=== PATIENT | female | born 1980 | race African-American/Black ===

== ENCOUNTER 2017-03-24 00:31 | Emergency (ER) | payer SELFPAY ==
[~2017-03-24] VITALS: Ht 172.7 cm; Wt 90.7 kg
[2017-03-24 00:39] VITALS: BP 140/58
== END 2017-03-24 02:54 | disposition home or self-care (01) ==
LOC: ER 00:33
DX: J06.9 Acute upper respiratory infection, unspecified (principal)
CPT/HCPCS: 71045-TC; A4606; Z7610